=== PATIENT | male | born 1940 | race Caucasian/White ===

== ENCOUNTER 2020-03-14 19:13 | Inpatient (IN) | payer MEDICARE, SELFPAY ==
[2020-03-14 19:16] VITALS: BP 117/75; PULSE 96; RESP 17; O2SAT 94; BMI 14.9
--- NOTE | 2020-03-14 20:10 | ED_ITS ---
HPI - Male Genitourinary General: Chief complaint: Urogenital-Male Stated complaint: urology cath trauma d/a Time Seen by Provider: 03/14/20 20:06 History of Present Illness: HPI Narrative: This patient is an 79-year-old male who is a direct admit from [facility]. He is coming through the ER for Covid rule out. He has dementia and is unable to provide me with any history. ON LICENSE OF [facility] ED PFSH: Medical History (Updated 03/15/20 @ 02:36 by Ella Gil MD) Anemia Atrial fibrillation CVA (cerebral vascular accident) Dementia GERD (gastroesophageal reflux disease) Hypertension Social History (Updated 03/15/20 @ 02:31 by Ella Gil MD) Smoking and tobacco status: unknown if ever smoked Course ED course: It is my understanding that this patient was accepted by the hospitalist service as a direct admit and his only need from the ER is a Covid test which was performed and was negative. 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
[2020-03-14 20:54] LABS: SARS Covid-2 Antigen Negative (Negative)
[2020-03-14 21:58] VITALS: BP 117/76; PULSE 85; RESP 17; O2SAT 96
[2020-03-14 22:28] VITALS: BP 124/81; PULSE 86; RESP 18; TEMP 37.3; O2SAT 96
[2020-03-15] VITALS (10 sets, daily range): BP systolic 95–137; BP diastolic 56–82; PULSE 74–128; RESP 14–20; TEMP 36.7–37.9; O2SAT 88–99; BMI 14.9
[2020-03-15] MEDS: morphine 4 mg/mL SDV 1 mL 2 MG IVP ×3 (00:44→07:39)
--- NOTE | 2020-03-15 00:45 | PC.NURSE ---
This RN attempted to place 18g [facility] catheter without success. Many blood clots came out during this attempt. Patient was having 10/10 pain pre-procedure and having 10/10 post procedure. 2mg morphine IVP given and patient is resting comfortably. Patient does state he is having lower abdomen discomfort and feels like he needs to urinate.
[2020-03-15] MEDS: LORazepam 2 mg/mL INJ 1 mL 0.5 MG IVP (01:27)
--- NOTE | 2020-03-15 02:18 | PM.HP ---
Providers/Chief Complaint Admitting Physician: Ella Gil MD Chief Complaint: urology cath trauma d/a History of Present Illness Dhruv Fang is a 79 year old male with recent h/o CVA who [facility] transferred here from [facility] with chief complaint of hematuria. Reportedly patient sustained a fall at the penitentiary yesterday and then this morning noted several blood clots around the penis. He has a chronic Bradshaw since his CVA. At the outside hospital multiple attempts were made to place a Bradshaw however there was no drainage of urine noted and eventually because of ongoing hematuria and inability to pass a Bradshaw he was referred [place] [facility] [place]. He was brought to med/surg floor as a direct admit. Initially noted to have ~380 ml on bladder scan. Since presentation here three-way Bradshaw has been inserted and patient has been started on CBI. Multiple blood clots are noted in bag. His past medical history significant for atrial fibrillation, CVA, hypertension, COPD, unknown if he is oxygen dependent. He has been moving all extremities since transfer. Notable labs from the outside hospital showed leukocytosis with white blood cell count of 12.5, hemoglobin 15.9, platelets of 291. Digoxin level is 0.8. BUN 41, creatinine 1.2. Mild hyperkalemia with potassium 5.1, normal LFTs except mildly elevated alk phos at 158. Do not see any anticoagulants on his list of medications. He is on aspirin 325 mg daily. This has been placed on hold. Patient has recently received morphine 2 mg and Ativan 0.5 mg as he was in severe pain prior to passing the Bradshaw. He is much more calm since receiving these medications, however is unable to give me any specific historical details at this present time. Upon presentation he had been alert and oriented though had gaps in short term memory. Unknown recent baseline, though transfer documents make a note of dementia, poor rehab potential and paralysis. Review of Systems General: Reports: ROS unobtainable due to medical condition Medications/Allergies Home Medications Medication Instructions Recorded Confirmed Last Taken Type aspirin 325 mg PO DAILY 03/14/20 03/15/20 03/14/20 History bumetanide 0.5 mg PO DAILY 03/14/20 03/15/20 03/14/20 History diltiazem HCl [Cartia XT] 240 mg PO QAM 03/14/20 03/15/20 03/14/20 History ferrous sulfate 325 mg PO DIRECTED 03/14/20 03/15/20 Unknown History atorvastatin [Lipitor] 40 mg PO DAILY 03/15/20 03/15/20 03/13/20 History benazepril 20 mg PO DAILY 03/15/20 03/15/20 03/14/20 History digoxin 125 mcg PO EVERY OTHER DAY 03/15/20 03/15/20 Unknown History isosorbide mononitrate 30 mg PO DAILY 03/15/20 03/15/20 1 Day Ago History ~03/14/20 levetiracetam [Keppra] 1,000 mg PO QAM 03/15/20 03/15/20 1 Day Ago History ~03/14/20 levetiracetam [Keppra] 500 mg PO BEDTIME 03/15/20 03/15/20 03/13/20 History levothyroxine 125 mcg PO DAILY 03/15/20 03/15/20 03/14/20 History metoprolol tartrate 100 mg PO BID 03/15/20 03/15/20 03/14/20 History potassium chloride 10 meq PO DAILY 03/15/20 03/15/20 03/14/20 History Allergies Allergy/AdvReac Type Severity Reaction Status Date / Time No Known Allergies Allergy Verified 03/14/20 23:47 PFSH Acute PFSH: Medical History Anemia Atrial fibrillation CVA (cerebral vascular accident) Dementia GERD (gastroesophageal reflux disease) Social History (Updated 03/15/20 @ 02:31 by Ella Gil MD) Smoking and tobacco status: unknown if ever smoked Vitals/I&O/Wt Last Vital Signs Temp 99.1 F 03/14/20 22:28 Pulse 86 03/14/20 22:28 Resp 14 03/15/20 00:44 BP 124/81 03/14/20 22:28 Pulse Ox 96 03/14/20 22:28 Weight last 48 hrs Weight 49.895 kg Physical Exam Narrative: EXAM NARRATIVE: GEN: Somnolent at this time, though wakes up easily to calling name and answers questions yes or no appropriately. 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 No gross scrotal injuries. A&P Assessment and plan (1) Hematuria: May be related to either trauma from reported mechanical fall with pulling of chronic Bradshaw vs multiple attempts to place bradshaw earlier today Currently with [address], on CBI, bright red blood with clots Last Hb earlier this aftrenoon at 15, recheck now Check PT/INR, no a/c on home medication list Hold ASA until hematuria resolves urology consult in morning Status: Acute (2) Hypertension: continue home medications inluding CLIF inhibitors, imdur and metoprolol Status: Acute (3) CVA (cerebral vascular accident): recent CVA Hold ASA continue statin, keppra Status: Acute (4) Atrial fibrillation: Currently rate controlled, continue digoxin and metoprolol Status: Acute Attestations Medical Necessity Statement*: anticipate >2midnight for management of gross hematuria, CBI, urology consult Coding Level of Care Code Acute Quality Assurance Assessor for [facility] Donna Diagnoses Hematuria R31.9 Hypertension I10 CVA (cerebral vascular accident) I63.9 Atrial fibrillation I48.91
[2020-03-15 03:07] LABS: Basophils % 0.2 %; Eosinophils % 0.1 %; Hematocrit 47.5 % (42.0-52.0); Hemoglobin 15.1 g/dL (11.7-16.6); Lymphocytes # 1.8 10^3/uL (0.8-4.8); Lymphocytes % 10.4 %; Mean Corpuscular HGB Conc 31.8 g/dL (30.0-36.0); Mean Corpuscular Hemoglobin 27.9 pg (28.0-34.0); Mean Corpuscular Volume 87.6 fL (80-94); Mean Platelet Volume 10.7 fL (7.4-10.4); Monocytes # 1.3 10^3/uL (0.2-0.9); Monocytes % 7.7 %; Neutrophils # 13.71 10^3/uL (1.8-7.7); Neutrophils % 81.2 %; Nucleated Red Blood Cells % 0 %; Platelet Count 284 10^3/cmm (130-400); Red Blood Count 5.42 10^6/uL (4.1-5.3); Red Cell Distribution Width 15.5 % (12.1-15.1); White Blood Count 16.9 10^3/uL (4.0-10.0)
[2020-03-15 03:15] LABS: INR 1.28 (0.8-1.2)
[2020-03-15 03:25] LABS: Alanine Aminotransferase 29 U/L (0-41); Albumin Level 3.5 g/dL (3.5-5.2); Alkaline Phosphatase 129 IU/L (40-130); Anion Gap 16.1 (5-19); Aspartate Amino Transferase 18 U/L (0-40); Blood Urea Nitrogen 35 mg/dL (8-23); Calcium 9.2 mg/dL (8.5-10.5); Carbon Dioxide 23 mmol/L (22-29); Chloride 103 mmol/L (98-107); Globulin 3.6 g/dL (1.3-4.6); Glucose 155 mg/dL (65-115); Osmolality Calculated 297 mOsm/kg (285-295); Potassium 4.1 mmol/L (3.5-5.1); Sodium 138 mmol/L (136-145); Total Bilirubin 0.8 mg/dL (0.15-1.2); Total Protein 7.1 g/dL (6.6-8.7)
[2020-03-15] MEDS: cefTRIAXone 1,000 MG in sodium chloride 0.9% (plus) 50 ML 100 MG IV (04:58)
[2020-03-15] MEDS: dilTIAZem ER (24HR) 240 mg Capsule PO (05:37)
[2020-03-15] MEDS: levETIRAcetam 500 mg Tablet 1000 MG PO (05:37)
--- NOTE | 2020-03-15 08:09 | PM.PROC ---
Other Information: Procedure: 1. Cystoscopy 2. Difficult catheter placement See consult for history. On first examination his bladder felt distended. Bladder scan confirmed at least 200 cc in his bladder. Alvarez catheter was not draining but CBI that was running and appeared to be running out clear. There is no real leakage around the catheter. Alvarez was removed and there was a minimal amount of bleeding. He was prepped and draped in the usual sterile fashion. Bedside flexible cystoscopy was performed with [facility] scope which showed a deep bulbar urethral partial disruption primarily posteriorly from catheter trauma. The true lumen was identified anteriorly thankfully and a scope was passed through the true lumen into the bladder. A guidewire was passed through the scope curled into the bladder and then a 20 [place] tip catheter was advanced over the wire into the bladder and the balloon inflated. After confirmation of balloon functioned appropriately the wire was removed. Several 100 cc of bloody urine was drained. The bladder was then irrigated and no clots were obtained. Catheter placed to dependent drainage. Catheter secured to the thigh with a Jhoan strap and instructions for securing the catheter making it difficult for the patient to reach were provided. The patient been pretreated with some morphine and Ativan and he tolerated procedure well. 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
--- NOTE | 2020-03-15 08:11 | PM.CONSULT ---
Providers/Reason For Consult Consulting Physican/Specialty*: Urology/Pugh Reason for Consult*: Gross hematuria malfunctioning Alvarez catheter Attending Physician: Ranulfo Bradford MD History of Present Illness History of Present Illness Dhruv Fang is a 79 year old male who I evaluated for the first time today for consultation. The patient has significant dementia and is not able to provide much information. We do know that he is a [place] [facility] resident in [facility] and apparently has a chronic indwelling Alvarez catheter. After a fall he apparently had increasing blood in the urine and around the catheter suspicious for catheter malpositioning. Attempts at local hospital were unsuccessful at replacing the catheter and he was transferred here for further evaluation. Rapid test in the emergency department was negative. Patient was in a lot of pain. He did have some blood at the meatus. Multiple attempts at passing the catheter were required to place 1 and there was a lot of blood drained with a catheter placement. Reportedly 400 cc were drained. He did not tolerated very well. CBI was started and appeared to be functioning well. I was consulted this morning for evaluation regarding the bleeding and catheter management. Patient was not able to provide any information other than his abdomen and suprapubic area were tender and that he had a surgery long time ago in his abdomen. Could not remember why Upon evaluation appeared that the catheter was probably not all the way in. His bladder felt distended and this was confirmed with a bladder scan. Manual irrigation of the catheter showed no ability to pull back much fluid surprisingly he did not have much leakage around the catheter. Irrigation was painful. At this point it was decided to perform a cystoscopy for evaluation with expectation of malpositioning of the catheter and urethral trauma. The Alvarez catheter was removed. He was prepped and draped in usual sterile fashion. Flexible cystoscopy did in fact confirm significant disruption of the posterior urethra from catheter trauma but the true lumen could be identified anteriorly and the scope was passed into the bladder and the wire placed. A 20 [place] tip catheter was placed over the wire. Function was confirmed bladder was irrigated no significant clots were returned. These findings are confirming urethral source of bleeding from catheter trauma with no significant clots within the bladder itself. The catheter was secured with a strap and instructions were given for further protection of the catheter from the patient grabbing it. Review of Systems General: Reports: ROS unobtainable due to mental status Meds/Allergies Home Medications and Allergies Home Medications Medication Instructions Recorded Confirmed Last Taken Type aspirin 325 mg PO DAILY 03/14/20 03/15/20 03/14/20 History bumetanide 0.5 mg PO DAILY 03/14/20 03/15/20 03/14/20 History diltiazem HCl [Cartia XT] 240 mg PO QAM 03/14/20 03/15/20 03/14/20 History ferrous sulfate 325 mg PO DIRECTED 03/14/20 03/15/20 Unknown History atorvastatin [Lipitor] 40 mg PO DAILY 03/15/20 03/15/20 03/13/20 History benazepril 20 mg PO DAILY 03/15/20 03/15/20 03/14/20 History digoxin 125 mcg PO EVERY OTHER DAY 03/15/20 03/15/20 Unknown History isosorbide mononitrate 30 mg PO DAILY 03/15/20 03/15/20 1 Day Ago History ~03/14/20 levetiracetam [Keppra] 1,000 mg PO QAM 03/15/20 03/15/20 1 Day Ago History ~03/14/20 levetiracetam [Keppra] 500 mg PO BEDTIME 03/15/20 03/15/20 03/13/20 History levothyroxine 125 mcg PO DAILY 03/15/20 03/15/20 03/14/20 History metoprolol tartrate 100 mg PO BID 03/15/20 03/15/20 03/14/20 History potassium chloride 10 meq PO DAILY 03/15/20 03/15/20 03/14/20 History Allergies Allergy/AdvReac Type Severity Reaction Status Date / Time No Known Allergies Allergy Verified 03/14/20 23:47 Current Medications Current Medications Generic Name Dose Route Start Last Admin Trade Name Freq PRN Reason Stop Dose Admin Diltiazem HCl 240 mg 03/15/20 06:00 03/15/20 05:37 Diltiazem Er (24hr) 240 Mg Capsule PO 240 mg QAM JIMENA Administration Ceftriaxone Sodium 1,000 mg/ 50 mls @ 100 mls/hr 03/15/20 02:45 03/15/20 04:58 Sodium Chloride IV 100 mls/hr Q24H JIMENA Administration Protocol Levetiracetam 1,000 mg 03/15/20 06:00 03/15/20 05:37 Levetiracetam 500 Mg Tablet PO 1,000 mg QAM JIMENA Administration Morphine Sulfate 2 mg 03/15/20 02:39 03/15/20 05:43 Morphine 4 Mg/Ml Sdv 1 Ml IVP 2 mg Q4H PRN Administration SEVERE PAIN PFSH Acute PFSH: Medical History (Updated 03/15/20 @ 08:25 by David Pugh MD) Anemia Atrial fibrillation CVA (cerebral vascular accident) Dementia GERD (gastroesophageal reflux disease) Hypertension Surgical History (Updated 03/15/20 @ 08:20 by David Pugh MD) History of abdominal surgery No further information available currently Social History Smoking and tobacco status: unknown if ever smoked Supplemental PFSH Information: Unable to obtain family or social history. Vitals/I&O/Wt Last Vital Signs Temp 98.3 F 03/15/20 04:00 Pulse 128 H 03/15/20 04:00 Resp 19 H 03/15/20 05:43 BP 137/82 03/15/20 04:00 Pulse Ox 96 03/15/20 04:00 Weight last 48 hrs Weight 110 lb Weight 110 lb Physical Exam Const: COMMON NORMALS: alert and well nourished GENERAL APPEARANCE: well kempt and well developed HENMT: COMMON NORMALS: normocephalic and atraumatic HEAD & SCALP: normocephalic and atraumatic Eye: COMMON NORMALS: conjunctivae normal and no scleral icterus CONJUNCTIVA: Yes conjunctivae normal Neck/C-Spine: COMMON NORMALS: full ROM GENERAL: Yes normal visual inspection Lymph: LYMPHATIC: No no lymphadenopathy noted and No no lymphedema noted Resp: COMMON NORMALS: normal respiratory effort EFFORT & INSPECTION: No labored and No Actively coughing Cardio: COMMON NORMALS: regular rate and regular rhythm RATE: regular rate RHYTHM: regular rhythm GI: COMMON NORMALS: Soft to palpation PALPATION: Yes Soft to palpation, Yes Tenderness to palpation present (GI) Details: LLQ, RLQ and other (Suprapubic) and Yes Palpable mass present (Likely distended bladder) suprapubic firm and tender RECTAL EXAM: Yes visual inspection normal OTHER: The bladder is distended. There is a well-healed midline lower abdominal incision over the suprapubic area. Etiology unclear : COMMON NORMALS: Yes no CVA tenderness BLADDER/KIDNEY EXAM: Yes catheter in place Catheter type (Male): urethral (Appears to be only partially in) and Yes no CVA tenderness PENIS: normal penis and uncircumcised MEATUS: meatus normal SCROTUM: No scrotal swelling and No scrotal mass Back/Pelvis: COMMON NORMALS: no CVA tenderness Extremity: COMMON NORMALS: no clubbing, cyanosis or edema Neuro: SENSORIUM/ORIENTATION: Yes alert Psych: APPEARANCE: Yes grossly normal and Yes well kempt ATTITUDE: Yes calm Skin: COMMON NORMALS: no rashes or lesions noted and no jaundice GENERAL SKIN EXAM: no rashes or lesions noted Urinary Catheter Management^: 3-way Urethral CBI: Cath Placed During This Visit: yes Urinary Catheter Date of Insertion: 03/15/20 Urinary Catheter Time of Insertion: 02:00 A&P Assessment and plan (1) Urethral injury: Likely from a fall with catheter malpositioning and then multiple attempts at replacing the catheter unsuccessful with likely further trauma. Catheter was replaced via assistance with cystoscopy guidewire placement and passage of [place] tip catheter over the guidewire. The urethra was severely injured primarily with disruption posteriorly but the true lumen was identifiable. No other gross abnormality was seen in the prostate or urethra proximal to the membranous or deep bulbar urethra. Recommendations for catheter: 1. Protect the catheter carefully to avoid patient pulling on the catheter. 2. Expect to see some blood continued around the catheter from the urethra until the urethra is healed. 3. No attempt should be made to change the catheter without consulting with me or other urology first. 4. I will plan on seeing the patient in my office in 3 to 4 weeks for next catheter change again assisted by cystoscopy to assess for healing of the disrupted area 4. Manual irrigation of the catheter as needed. Status: Acute (2) Urinary retention: Reportedly the patient has a chronic Alvarez catheter. Details related to why are unclear at this point. Status: Chronic (3) Hematuria: Secondary to urethral injury Status: Acute Consult Attestations Medical Necessity Statement: See attending Time Spent in Patient Care: Total time 95 minutes Coding Level of Care Code Acute Social Security Specialist for [facility] Fwd Exam Comprehensive Diagnoses Urethral injury S37.30XA Urinary retention R33.9 Hematuria R31.9
--- NOTE | 2020-03-15 10:42 | PC.SLP ---
Attempted to evaluate for ST. Unable to rouse pt. Nursing stated to attempt ST evaluation tomorrow.
--- NOTE | 2020-03-15 11:17 | PC.PT ---
PT attempted to wake patient for PT evaluation but unable to arouse on multiple attempts. PT spoke with nursing who reports he will likely respond better tomorrow. PT will attempt evaluation again tomorrow.
--- NOTE | 2020-03-15 12:55 | PM.PN ---
Subjective Subjective: Interval history: This morning patient was examined, he is sleeping, but somnolent, as he is received multiple doses of morphine after his Alvarez had to be replaced, as he was in pain, nurses tell me that at 1 point he was able to ambulate to the bathroom with assistance, he was moving his upper and lower extremities, they have kept him n.p.o., as they were concerned for aspiration Vitals/I&O/Wt Last Vital Signs Temp 100.2 F H 03/15/20 11:58 Pulse 109 H 03/15/20 11:58 Resp 18 03/15/20 11:58 BP 96/56 03/15/20 11:58 Pulse Ox 93 03/15/20 11:58 Weight last 48 hrs Weight 49.895 kg Weight 49.895 kg Physical Exam Const: COMMON NORMALS: no acute distress OTHER: Sleeping, somnolent HENMT: COMMON NORMALS: normocephalic HEAD & SCALP: normocephalic Eye: COMMON NORMALS: Equal, round and reactive pupils present PUPIL: Yes Equal, round and reactive pupils present Neck/C-Spine: COMMON NORMALS: no JVD Chest: COMMONS NORMALS: normal inspection of the chest Resp: COMMON NORMALS: normal respiratory effort, No retractions and No use of accessory muscles Cardio: COMMON NORMALS: no JVD, regular rate, regular rhythm, S1 normal heart sound present and S2 normal heart sound present RATE: regular rate RHYTHM: regular rhythm HEART SOUNDS: S1 normal heart sound present and S2 normal heart sound present GI: COMMON NORMALS: Normal to inspection, nondistended, normoactive bowel sounds present, Soft to palpation, non-tender and No hepatosplenomegaly present PALPATION: Yes Soft to palpation and Yes No hepatosplenomegaly present Extremity: COMMON NORMALS: full ROM, capillary refill normal and no clubbing, cyanosis or edema Urinary Catheter Management^: 3-way Urethral CBI: Cath Placed During This Visit: yes Urinary Catheter Date of Insertion: 03/15/20 Urinary Catheter Time of Insertion: 02:00 Alvarez Latex Free: Cath Placed During This Visit: yes Urinary Catheter Date of Insertion: 03/15/20 Urinary Catheter Time of Insertion: 08:00 Data : 03/15/20 02:46 03/15/20 02:46 A&P Assessment and plan (1) Hematuria: Likely secondary to urethral injury Patient must of fallen, and somehow pulled on Alvarez catheter Catheter was placed by Dr. Pugh, thank you for the help and consult Avoid blood thinners and anticoagulation for the next 24 hours Continue one-on-one sitter, as patient has had episodes of confusion, avoid pulling on the Alvarez catheter Status: Acute (2) Hypertension: continue home medications inluding CLIF inhibitors, imdur and metoprolol Status: Acute (3) CVA (cerebral vascular accident): In terms of the CVA, what I get from the senior care, is the patient a few days ago had a large CVA, he had right upper and lower extremity weakness, was discharged to the senior care, he only spent 1 day at the senior care, apparently the senior care was telling me that the came early in the morning and wanted him discharged from the senior care, but she left subsequently, they have not heard back from her, throughout the day he was quite weak, fatigued, who is a high aspiration risk, so they did not feed him, and not sure exactly if he had a formal swallow evaluation, but unfortunately during the nights he got up out of bed, and fell -Hold aspirin -Continue statin, Keppra -will do a formal swallow evaluation on him tomorrow -PT OT -We will better evaluate his neurologic status, when he is much more awake -Continue Rocephin for possible UTI Status: Acute (4) Atrial fibrillation: -Currently on Cardizem continue digoxin and metoprolol -I am not sure why he is not on anticoagulation, -Nonetheless all anticoagulation is on hold given urethral trauma -Will await records from [facility] -Continue telemetry monitoring Status: Acute Attestations Medical Necessity Statement*: Patient requires hospitalization for urethral injury, hematuria, recent history of CVA Coding Level of Care Code Acute 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
--- NOTE | 2020-03-15 13:06 | XRR_ITS ---
PROCEDURE INFORMATION: Exam: XR Chest, 1 View Exam date and time: 03/15/2020 1:26 PM Age: 79 years old Clinical indication: Other: PT unable to give history; Additional info: SOB TECHNIQUE: Imaging protocol: XR of the chest Views: 1 view. COMPARISON: No relevant prior studies available. FINDINGS: Lungs: There is chronic interstitial densities seen in the bilateral lower lobes. Pleural space: Unremarkable. No pleural effusion. No pneumothorax. Heart/Mediastinum: Unremarkable. No cardiomegaly. Bones/joints: Unremarkable. XR/XR chest 1V portable [id number] IMPRESSION: 1. Interstitial densities bilateral lower lobes 2. Otherwise No acute findings.
--- NOTE | 2020-03-15 13:06 | CTR_ITS ---
PROCEDURE INFORMATION: Exam: CT Head Without Contrast Exam date and time: 03/15/2020 1:27 PM Age: 79 years old Clinical indication: Altered mental status/memory loss; Additional info: AMS TECHNIQUE: Imaging protocol: Computed tomography of the head without contrast. Radiation optimization: All CT scans at this facility use at least one of these dose optimization techniques: automated exposure control; mA and/or kV adjustment per patient size (includes targeted exams where dose is matched to clinical indication); or iterative reconstruction. COMPARISON: No relevant prior studies available. RADIATION DOSE METRICS: Total DLP (mGy-cm): 2151.18 FINDINGS: Brain: Left medial occipital lobe chronic infarction. Chronic right superior parietal cortical infarction. Moderate hypoattenuating foci are noted in the central cerebral, posterior superior periatrial and anterior lateral ventricular periventricular white matter bilaterally. No intracranial hemorrhage. No mass or acute cortical infarction identified. Cerebral ventricles: Prominence of the ventricular system and subarachnoid spaces is consistent with the patient's age of 79 years. Ex vacuo enlargement of the left lateral ventricular occipital horn. Bones/joints: See Paranasal sinuses finding. Paranasal sinuses: Minimal bilateral maxillary and sphenoid sinus mucosal thickening. Moderate chronic bilateral maxillary and sphenoid sinus bony wall thickening. Hypoplastic/absent frontal sinuses, normal variant. Mastoid air cells: Visualized mastoid air cells are well aerated. Vasculature: Atherosclerotic calcifications are present involving the basilar artery, and the carotid artery siphons and vertebral arteries bilaterally. Bilateral scleral calcifications. Soft tissues: Mild left lower anterior frontal superficial soft tissue swelling versus subcutaneous scarring. CT/CT head wo con* [id number] IMPRESSION: 1. Left medial occipital lobe chronic infarction. 2. Chronic right superior parietal cortical infarction. 3. Age appropriate supratentorial and infratentorial atrophy. 4. Moderate chronic white matter microvascular ischemic disease. 5. No acute intracranial abnormality identified. 6. Incidental paranasal sinus disease as above. Radiation Dose CTDIVOL = (mGy): DLP = 2151.18 (mGy-cm)
[2020-03-15 13:43] LABS: Procalcitonin 0.22 ng/mL (0-0.5)
[2020-03-15 13:54] LABS: C Reactive Protein 40.4 mg/L (0.0-4.9)
[2020-03-15 15:00] LABS: Lactate (Lactic Acid level) 1.2 mmol/L (0.5-2.2)
[2020-03-15] MEDS: vancomycin 750 MG in sodium chloride 0.9% 250 ML 250 MG IV (15:26)
[2020-03-15] MEDS: piperacillin-tazobactam 3.375 GM in sodium chloride 0.9% (plus) 50 ML IV (17:26)
[2020-03-15] MEDS: lactated ringers 500 ML 999 ML IV (18:45)
[2020-03-15] MEDS: levETIRAcetam 500 mg Tablet PO (20:45)
[2020-03-16] VITALS (11 sets, daily range): BP systolic 92–143; BP diastolic 50–92; PULSE 54–102; RESP 15–18; TEMP 36.6–37.2; O2SAT 93–97
[2020-03-16] MEDS: piperacillin-tazobactam 3.375 GM in sodium chloride 0.9% (plus) 50 ML IV ×3 (02:14→18:30)
[2020-03-16] MEDS: dilTIAZem ER (24HR) 240 mg Capsule PO (05:57)
[2020-03-16] MEDS: levETIRAcetam 500 mg Tablet 1000 MG PO (05:57)
[2020-03-16] MEDS: pantoprazole DR 40 mg Tablet PO (09:03)
[2020-03-16] MEDS: ferrous sulfate EC 325 mg Tablet PO (09:04)
[2020-03-16] MEDS: isosorbide mononitrate ER 30 mg Tablet PO (09:04)
[2020-03-16] MEDS: levothyroxine 125 mcg Tablet PO (09:04)
[2020-03-16] MEDS: metoprolol tartrate 50 mg Tablet 100 MG PO ×2 (09:04→18:28)
[2020-03-16] MEDS: atorvastatin 40 mg Tablet PO (09:04)
[2020-03-16 10:27] LABS: Basophils % 0.3 %; Eosinophils # 0.1 10^3/uL (0.0-0.8); Eosinophils % 1.2 %; Hematocrit 44.2 % (42.0-52.0); Hemoglobin 13.3 g/dL (11.7-16.6); Lymphocytes # 1.3 10^3/uL (0.8-4.8); Lymphocytes % 14.1 %; Mean Corpuscular HGB Conc 30.1 g/dL (30.0-36.0); Mean Corpuscular Hemoglobin 28.1 pg (28.0-34.0); Mean Corpuscular Volume 93.4 fL (80-94); Mean Platelet Volume 10.8 fL (7.4-10.4); Monocytes # 1.1 10^3/uL (0.2-0.9); Monocytes % 12.1 %; Neutrophils # 6.47 10^3/uL (1.8-7.7); Nucleated Red Blood Cells % 0 %; Platelet Count 193 10^3/cmm (130-400); Red Blood Count 4.73 10^6/uL (4.1-5.3); Red Cell Distribution Width 15.8 % (12.1-15.1)
[2020-03-16 10:53] LABS: NT Pro B Type Natriuretic Pept 1894 pg/mL (0-450); Procalcitonin 0.21 ng/mL (0-0.5)
[2020-03-16 10:58] LABS: INR 1.27 (0.8-1.2)
[2020-03-16 11:04] LABS: Alanine Aminotransferase 20 U/L (0-41); Albumin Level 2.8 g/dL (3.5-5.2); Alkaline Phosphatase 96 IU/L (40-130); Aspartate Amino Transferase 15 U/L (0-40); Blood Urea Nitrogen 27 mg/dL (8-23); Carbon Dioxide 25 mmol/L (22-29); Chloride 104 mmol/L (98-107); Creatine Phosphokinase 44 U/L (39-308); Globulin 3.1 g/dL (1.3-4.6); Glucose 111 mg/dL (65-115); Magnesium 2.2 mg/dL (1.7-2.3); Osmolality Calculated 292 mOsm/kg (285-295); Phosphorus 2.8 mg/dL (2.5-4.5); Sodium 138 mmol/L (136-145); Total Bilirubin 0.4 mg/dL (0.15-1.2); Total Protein 5.9 g/dL (6.6-8.7)
--- NOTE | 2020-03-16 12:00 | P.PN_ITS ---
Subjective Subjective: Interval history: This morning patient was examined, he is much more alert, awake, he knows his name, he knows where he is, does not know the time, he forgets that he had a stroke, he is wondering what what had happened, he surprised that he fell, surprised that he has a urethral injury, he does follow commands, his right upper lower extremity are weak compared to the left, no slurring of his speech noticed, he was able to tolerate clear liquid diet, speech pathology is seeing him this morning Vitals/I&O/Wt Last Vital Signs Temp 97.9 F 03/16/20 11:05 Pulse 55 L 03/16/20 11:05 Resp 15 03/16/20 11:05 BP 92/51 03/16/20 11:05 Pulse Ox 97 03/16/20 11:05 03/15/20 03/16/20 03/16/20 22:59 06:59 14:59 Intake Total 50 / 50 50 / 100 Output Total 400 / 400 350 / 750 Balance -350 / -350 -300 / -650 Weight last 48 hrs Weight 49.895 kg Weight 49.895 kg Physical Exam Const: COMMON NORMALS: no acute distress and alert GENERAL APPEARANCE: cooperative ORIENTATION/CONSCIOUSNESS: Yes awake and Yes oriented to person; not oriented to place and not oriented to time HENMT: COMMON NORMALS: normocephalic HEAD & SCALP: normocephalic Eye: COMMON NORMALS: Equal, round and reactive pupils present PUPIL: Yes Equal, round and reactive pupils present Neck/C-Spine: COMMON NORMALS: no JVD Lymph: LYMPHATIC: no lymphadenopathy noted Resp: COMMON NORMALS: normal respiratory effort, No retractions, No use of accessory muscles and clear to auscultation bilaterally AUSCULTATION: clear to auscultation bilaterally Cardio: COMMON NORMALS: no JVD, regular rate, S1 normal heart sound present and S2 normal heart sound present RATE: regular rate HEART SOUNDS: S1 normal heart sound present and S2 normal heart sound present GI: COMMON NORMALS: Normal to inspection, nondistended, normoactive bowel sounds present, Soft to palpation, non-tender and No hepatosplenomegaly present INSPECTION: Yes normal to inspection PALPATION: Yes Soft to palpation and Yes No hepatosplenomegaly present Extremity: COMMON NORMALS: no pedal edema Neuro: SENSORIUM/ORIENTATION: Yes alert, Yes oriented to person, No oriented to place and No oriented to time OTHER: Right upper extremity weakness 3 out of 5 compared to 5 out of 5 on the left right lower extremity strength 3 out of 5 compared to 5 out of 5 on the left, no slurring of his speech, no choking episodes, no facial droop Urinary Catheter Management^: 3-way Urethral CBI: Cath Placed During This Visit: yes Urinary Catheter Date of Insertion: 03/15/20 Urinary Catheter Time of Insertion: 02:00 Alvarez Latex Free: Cath Placed During This Visit: yes Reason for Continuing Indwelling Catheter: Chronic Indwelling Urinary Catheter on Admission Urinary Catheter Date of Insertion: 03/15/20 Urinary Catheter Time of Insertion: 08:00 Data : 03/16/20 10:00 03/16/20 10:00 Micro: Microbiology 03/15/20 14:00 Urine Culture - Preliminary Urine Catheterized Enterococcus species 03/15/20 14:00 Bacterial Antigens - Final Urine,Clean Catch 03/15/20 14:17 Blood Culture - Preliminary Blood SPECIMEN COLLECTED 03/15/20 14:09 Blood Culture - Preliminary Blood SPECIMEN COLLECTED A&P Assessment and plan (1) Hematuria: Likely secondary to urethral injury Patient must of fallen, and somehow pulled on Alvarez catheter Catheter was placed by Dr. Pugh, thank you for the help and consult Avoid blood thinners and anticoagulation for the next 24 hours Continue one-on-one sitter, as patient has had episodes of confusion, avoid pulling on the Alvarez catheter Status: Acute (2) Hypertension: continue home medications inluding CLIF inhibitors, imdur and metoprolol Status: Acute (3) CVA (cerebral vascular accident): In terms of the CVA, what I get from the senior living, is the patient a few days ago had a large CVA, he had right upper and lower extremity weakness, was discharged to the senior living, he only spent 1 day at the senior living, apparently the senior living was telling me that the came early in the morning and wanted him discharged from the senior living, but she left subsequently, they have not heard back from her, throughout the day he was quite weak, fatigued, who is a high aspiration risk, so they did not feed him, and not sure exactly if he had a formal swallow evaluation, but unfortunately during the nights he got up out of bed, and fell -I spoke to patient today, she tells me that patient had a history of bladder cancer, status post chemotherapy, follows with a urologist in [place], has a history of CVA in 2013, with peripheral right vision loss, recent history of a stroke at [facility], he has right upper extremity weakness some right lower extremity weakness, unsteadiness on his feet, tells me that he was quite difficult to work with physical therapist, would refuse physical therapy at time, she tells me that she would feed him every day, no dysphagia that she knows of, no new visual loss as per her knowledge, maybe some slight slurring of his speech, but nothing profound. -I spoke to again today, she does not want him to be discharged to senior living, she wants to take him home, I advised that he has right upper lower extremity weakness is very unsteady on his feet, has a high risk of falls, high risk of fractures, high risk of intracranial bleed, high risk of significant mor bidity and mortality. She tells me that he has already fallen in the senior living, they do not do a good job there, she might as well take him home, also she tells me that they cannot afford it. I advised that he is unsafe to go home in my opinion, he really needs senior living care, that is my strong recommendation for him to go to a senior living, he needs a lot of assistance, I am also worried about her injuring herself trying to take care of him, she tells me that she still wants him to come home, but she will think about it tonight -Hold aspirin -Continue statin, Keppra -will do a formal swallow evaluation on him tomorrow -PT OT -We will better evaluate his neurologic status, when he is much more awake -Continue Rocephin for possible UTI Status: Acute (4) Atrial fibrillation: -Currently on Cardizem continue digoxin and metoprolol -Not on anticoagulation due to multiple falls, high risk of significant injury -Will await records from [facility] -Continue telemetry monitoring Status: Acute Additional A&P Information Aspiration pneumonia: T-max 100.2, is on 2 L, likely has aspiration event secondary to fall -Blood cultures, urine cultures, sputum cultures, urine bacterial antigens -On broad-spectrum antibiotics vancomycin and Zosyn -De-escalate to vancomycin after MRSA nares comes back negative Attestations Medical Necessity Statement*: Patient requires hospitalization for CVA, urethral injury, aspiration pneumonia Coding Level of Care Code 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
[2020-03-16] MEDS: vancomycin 750 MG in sodium chloride 0.9% 250 ML 250 MG IV (16:55)
[2020-03-16] MEDS: levETIRAcetam 500 mg Tablet PO (21:27)
[2020-03-17] VITALS (11 sets, daily range): BP systolic 92–129; BP diastolic 62–85; PULSE 59–88; RESP 15–20; TEMP 36.4–36.9; O2SAT 94–96
[2020-03-17] MEDS: piperacillin-tazobactam 3.375 GM in sodium chloride 0.9% (plus) 50 ML IV ×3 (03:33→18:02)
[2020-03-17 04:56] LABS: Basophils % 0.2 %; Eosinophils # 0.2 10^3/uL (0.0-0.8); Eosinophils % 2.5 %; Hematocrit 39.2 % (42.0-52.0); Hemoglobin 12.1 g/dL (11.7-16.6); Lymphocytes # 1.6 10^3/uL (0.8-4.8); Lymphocytes % 19.9 %; Mean Corpuscular HGB Conc 30.9 g/dL (30.0-36.0); Mean Corpuscular Hemoglobin 27.6 pg (28.0-34.0); Mean Corpuscular Volume 89.5 fL (80-94); Mean Platelet Volume 11.1 fL (7.4-10.4); Monocytes # 1.1 10^3/uL (0.2-0.9); Monocytes % 13.5 %; Neutrophils # 5.14 10^3/uL (1.8-7.7); Neutrophils % 63.5 %; Nucleated Red Blood Cells % 0 %; Platelet Count 207 10^3/cmm (130-400); Red Blood Count 4.38 10^6/uL (4.1-5.3); Red Cell Distribution Width 15.9 % (12.1-15.1); White Blood Count 8.1 10^3/uL (4.0-10.0)
[2020-03-17 05:26] LABS: INR 1.16 (0.8-1.2)
[2020-03-17 05:31] LABS: NT Pro B Type Natriuretic Pept 2167 pg/mL (0-450); Procalcitonin 0.19 ng/mL (0-0.5)
[2020-03-17 05:42] LABS: Alanine Aminotransferase 18 U/L (0-41); Albumin Level 2.6 g/dL (3.5-5.2); Alkaline Phosphatase 85 IU/L (40-130); Anion Gap 11.1 (5-19); Aspartate Amino Transferase 15 U/L (0-40); Blood Urea Nitrogen 28 mg/dL (8-23); C Reactive Protein 49.1 mg/L (0.0-4.9); Calcium 8.9 mg/dL (8.5-10.5); Carbon Dioxide 26 mmol/L (22-29); Chloride 105 mmol/L (98-107); Creatine Phosphokinase 41 U/L (39-308); Globulin 3.2 g/dL (1.3-4.6); Glucose 101 mg/dL (65-115); Magnesium 2.1 mg/dL (1.7-2.3); Osmolality Calculated 292 mOsm/kg (285-295); Phosphorus 2.9 mg/dL (2.5-4.5); Potassium 4.1 mmol/L (3.5-5.1); Sodium 138 mmol/L (136-145); Total Bilirubin 0.4 mg/dL (0.15-1.2); Total Protein 5.8 g/dL (6.6-8.7)
[2020-03-17] MEDS: dilTIAZem ER (24HR) 240 mg Capsule PO (06:19)
[2020-03-17] MEDS: levETIRAcetam 500 mg Tablet 1000 MG PO (06:19)
[2020-03-17] MEDS: metoprolol tartrate 50 mg Tablet 100 MG PO ×2 (09:00→18:02)
[2020-03-17] MEDS: levothyroxine 125 mcg Tablet PO (09:00)
[2020-03-17] MEDS: atorvastatin 40 mg Tablet PO (09:00)
[2020-03-17] MEDS: digoxin 125 mcg Tablet PO (09:00)
[2020-03-17] MEDS: isosorbide mononitrate ER 30 mg Tablet PO (09:01)
[2020-03-17] MEDS: pantoprazole DR 40 mg Tablet PO (09:01)
--- NOTE | 2020-03-17 09:10 | PC.SOCIAL ---
IMM Page 2 of [facility] explained to patient's spouse by phone. She verbalizes understanding. Initialed, dated, and timed and placed in chart. Copy provided to patient's room.
--- NOTE | 2020-03-17 13:21 | P.PN_ITS ---
Subjective Subjective: Interval history: This morning patient was examined, he is alert to person, place, not to time, does not know why he is here in the hospital, does not remember he had a stroke, persistently has right upper extremity weakness, right lower extremity weakness, tolerating his diet well, no episodes of agitation overnight, is on room air Vitals/I&O/Wt Last Vital Signs Temp 97.5 F L 03/17/20 11:34 Pulse 72 03/17/20 11:34 Resp 15 03/17/20 11:34 BP 100/65 03/17/20 11:34 Pulse Ox 95 03/17/20 11:34 03/16/20 03/17/20 03/17/20 22:59 06:59 14:59 Intake Total 580 / 1060 60 / 1120 290 / 290 Output Total 350 / 350 150 / 500 Balance 230 / 710 -90 / 620 290 / 290 Physical Exam Const: COMMON NORMALS: no acute distress and alert GENERAL APPEARANCE: cooperative ORIENTATION/CONSCIOUSNESS: Yes awake and Yes oriented to person; not oriented to place and not oriented to time HENMT: COMMON NORMALS: normocephalic HEAD & SCALP: normocephalic Eye: COMMON NORMALS: Equal, round and reactive pupils present PUPIL: Yes Equal, round and reactive pupils present Neck/C-Spine: COMMON NORMALS: no JVD Lymph: LYMPHATIC: no lymphadenopathy noted Chest: COMMONS NORMALS: normal inspection of the chest Resp: COMMON NORMALS: normal respiratory effort, No retractions, No use of accessory muscles and clear to auscultation bilaterally AUSCULTATION: clear to auscultation bilaterally Cardio: COMMON NORMALS: no JVD, regular rate, regular rhythm, S1 normal heart sound present and S2 normal heart sound present RATE: regular rate RHYTHM: regular rhythm HEART SOUNDS: S1 normal heart sound present and S2 normal heart sound present GI: COMMON NORMALS: Normal to inspection, nondistended, normoactive bowel sounds present, Soft to palpation, non-tender and No hepatosplenomegaly present INSPECTION: Yes normal to inspection PALPATION: Yes Soft to palpation and Yes No hepatosplenomegaly present Extremity: COMMON NORMALS: full ROM, capillary refill normal, no clubbing, cyanosis or edema and no pedal edema Neuro: SENSORIUM/ORIENTATION: Yes alert, Yes oriented to person, No oriented to place and No oriented to time OTHER: Right upper extremity weakness 3 out of 5 compared to 5 out of 5 on the left right lower extremity strength 3 out of 5 compared to 5 out of 5 on the left, no slurring of his speech, no choking episodes, no facial droop Urinary Catheter Management^: 3-way Urethral CBI: Cath Placed During This Visit: yes Urinary Catheter Date of Insertion: 03/15/20 Urinary Catheter Time of Insertion: 02:00 Alvarez Latex Free: Cath Placed During This Visit: yes Reason for Continuing Indwelling Catheter: Chronic Indwelling Urinary Catheter on Admission Urinary Catheter Date of Insertion: 03/15/20 Urinary Catheter Time of Insertion: 08:00 Data : 03/17/20 04:40 03/17/20 04:40 Micro: Microbiology 03/15/20 14:00 Urine Culture - Final Urine Catheterized Enterococcus faecalis 03/16/20 13:15 MRSA Culture - Final Nose 03/15/20 14:17 Blood Culture - Preliminary Blood NEGATIVE TO DATE 03/15/20 14:09 Blood Culture - Preliminary Blood NEGATIVE TO DATE A&P Assessment and plan (1) Hematuria: Likely secondary to urethral injury Patient must of fallen, and somehow pulled on Alvarez catheter Catheter was placed by Dr. Pugh, thank you for the help and consult Avoid blood thinners and anticoagulation for the next 24 hours Continue one-on-one sitter, as patient has had episodes of confusion, avoid pulling on the Alvarez catheter Status: Acute (2) Hypertension: continue home medications inluding CLIF inhibitors, imdur and metoprolol Status: Acute (3) CVA (cerebral vascular accident): In terms of the CVA, what I get from the correction, is the patient a few days ago had a large CVA, he had right upper and lower extremity weakness, was discharged to the correction, he only spent 1 day at the correction, apparently the correction was telling me that the came early in the morning and wanted him discharged from the correction, but she left subsequently, they have not heard back from her, throughout the day he was quite weak, fatigued, who is a high aspiration risk, so they did not feed him, and not sure exactly if he had a formal swallow evaluation, but unfortunately during the nights he got up out of bed, and fell -I spoke to patient today, she tells me that patient had a history of bladder cancer, status post chemotherapy, follows with a urologist in [place], has a history of CVA in 2013, with peripheral right vision loss, recent history of a stroke at [facility], he has right upper extremity weakness some right lower extremity weakness, unsteadiness on his feet, tells me that he was quite difficult to work with physical therapist, would refuse physical therapy at time, she tells me that she would feed him every day, no dysphagia that she knows of, no new visual loss as per her knowledge, maybe some slight slurring of his speech, but nothing profound. -I spoke to again today, she does not want him to be discharged to correction, she wants to take him home, I advised that he has right upper lower extremity weakness is very unsteady on his feet, has a high risk of falls, high risk of fractures, high risk of intracranial bleed, high risk of significant morbidity and mortality. She tells me that he has already fallen in the correction, they do not do a good job there, she might as well take him home, also she tells me that they cannot afford it. I advised that he is unsafe to go home in my opinion, he really needs correction care, that is my strong recommendation for him to go to a correction, he needs a lot of assistance, I am also worried about her injuring herself trying to take care of him, she tells me that she still wants him to come home -Patient's now wants him to go to either [facility] bed or go home with rafael, this will be have to be arranged, will find out by Thursday -Hold aspirin for now -Hold DVT prophylaxis for now -Continue statin, Keppra -Currently on dysphagia diet -PT OT -Right upper extremity weakness and lower extremity weakness 3 out of 5 compared 5/5 on the left -Refuses to participate in physical therapy -Continue Zosyn for possible UTI, and likely aspiration pneumonia Status: Acute (4) Atrial fibrillation: -Currently on Cardizem continue digoxin and metoprolol -Not on anticoagulation due to multiple falls, high risk of significant injury -Will await records from [facility] -Continue telemetry monitoring Status: Acute Additional A&P Information Aspiration pneumonia: T-max 100.2, is on 2 L, likely has aspiration event secondary to fall -Currently afebrile, on room air -Blood cultures so far negative - urine cultures, sputum cultures, urine bacterial antigens -MRSA nares negative, stop vancomycin -Continue Zosyn - Attestations Medical Necessity Statement*: Patient requires hospitalization for urethral injury, aspiration pneumonia Coding Level of Care Code 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
--- NOTE | 2020-03-17 13:54 | PC.OT ---
OT ATTEMPTED TREATMENT HOWEVER PATIENT WAS UNAROUSABLE. MULTIPLE ATTEMPTS, WHEN PATIENT WOULD AWAKE, HE REPLIED MORE THAN ONCE I AM NOT DOING EXERCISES . PER SITTER, HE IS IN A MOOD TODAY . OT WILL ATTEMPT AGAIN TOMORROW. PATIENT REFUSED TREATMENT THIS DATE.
[2020-03-18] VITALS (10 sets, daily range): BP systolic 106–130; BP diastolic 63–79; PULSE 57–90; RESP 16–18; TEMP 36.4–37.2; O2SAT 91–95
[2020-03-18] MEDS: piperacillin-tazobactam 3.375 GM in sodium chloride 0.9% (plus) 50 ML IV (02:09)
[2020-03-18 05:06] LABS: Basophils % 0.3 %; Eosinophils # 0.4 10^3/uL (0.0-0.8); Eosinophils % 4.9 %; Lymphocytes # 2.1 10^3/uL (0.8-4.8); Lymphocytes % 26.8 %; Mean Corpuscular HGB Conc 31.6 g/dL (30.0-36.0); Mean Corpuscular Hemoglobin 28.2 pg (28.0-34.0); Mean Corpuscular Volume 89.4 fL (80-94); Mean Platelet Volume 10.9 fL (7.4-10.4); Monocytes # 1.1 10^3/uL (0.2-0.9); Monocytes % 14.3 %; Neutrophils # 4.27 10^3/uL (1.8-7.7); Neutrophils % 53.3 %; Nucleated Red Blood Cells % 0 %; Platelet Count 211 10^3/cmm (130-400); Red Blood Count 4.25 10^6/uL (4.1-5.3); Red Cell Distribution Width 15.5 % (12.1-15.1)
[2020-03-18 05:29] LABS: INR 1.15 (0.8-1.2)
[2020-03-18 05:34] LABS: NT Pro B Type Natriuretic Pept 2790 pg/mL (0-450); Procalcitonin 0.12 ng/mL (0-0.5)
[2020-03-18 05:57] LABS: Alanine Aminotransferase 14 U/L (0-41); Albumin Level 2.7 g/dL (3.5-5.2); Alkaline Phosphatase 76 IU/L (40-130); Anion Gap 12.7 (5-19); Aspartate Amino Transferase 17 U/L (0-40); Blood Urea Nitrogen 20 mg/dL (8-23); C Reactive Protein 28.1 mg/L (0.0-4.9); Calcium 8.6 mg/dL (8.5-10.5); Carbon Dioxide 23 mmol/L (22-29); Chloride 106 mmol/L (98-107); Creatine Phosphokinase 26 U/L (39-308); Globulin 2.8 g/dL (1.3-4.6); Glucose 85 mg/dL (65-115); Magnesium 1.9 mg/dL (1.7-2.3); Osmolality Calculated 288 mOsm/kg (285-295); Phosphorus 2.2 mg/dL (2.5-4.5); Potassium 3.7 mmol/L (3.5-5.1); Sodium 138 mmol/L (136-145); Total Bilirubin 0.4 mg/dL (0.15-1.2); Total Protein 5.5 g/dL (6.6-8.7)
[2020-03-18] MEDS: levETIRAcetam 500 mg Tablet 1000 MG PO (06:17)
[2020-03-18] MEDS: dilTIAZem ER (24HR) 240 mg Capsule PO (06:17)
[2020-03-18] MEDS: atorvastatin 40 mg Tablet PO (09:51)
[2020-03-18] MEDS: metoprolol tartrate 50 mg Tablet 100 MG PO ×2 (09:51→18:33)
[2020-03-18] MEDS: lisinopril 20 mg Tablet PO (09:51)
[2020-03-18] MEDS: isosorbide mononitrate ER 30 mg Tablet PO (09:51)
[2020-03-18] MEDS: potassium chloride ER 10 mEq Tablet PO (09:52)
[2020-03-18] MEDS: levothyroxine 125 mcg Tablet PO (09:52)
[2020-03-18] MEDS: bumetanide 1 mg Tablet 0.5 MG PO (09:52)
[2020-03-18] MEDS: aspirin 81 mg EC Tablet PO (09:52)
[2020-03-18] MEDS: pantoprazole DR 40 mg Tablet PO (09:52)
[2020-03-18] MEDS: ferrous sulfate EC 325 mg Tablet PO (09:52)
--- NOTE | 2020-03-18 12:45 | PM.PN ---
Subjective Subjective: Interval history: This morning patient was seen, he is laying in bed, continues to have progressive weakness on the right side, no slurring of his speech, states that he is doing fine, his mentation seems to fluctuate, but answers some questions, still quite forgetful, alert oriented x 2, his one-on-one sitter was discontinued, but will place a bladder alarm Vitals/I&O/Wt Last Vital Signs Temp 97.9 F 03/18/20 11:59 Pulse 61 03/18/20 11:59 Resp 18 03/18/20 11:59 BP 106/63 03/18/20 11:59 Pulse Ox 95 03/18/20 11:59 03/17/20 03/18/20 03/18/20 22:59 06:59 14:59 Intake Total 410 / 1110 50 / 1160 Output Total 350 / 350 250 / 600 Balance 60 / 760 -200 / 560 Weight last 48 hrs Weight 76.929 kg Physical Exam Const: COMMON NORMALS: no acute distress EXAM LIMITATIONS: altered mental status ORIENTATION/CONSCIOUSNESS: Yes awake and Yes confused; not oriented to person, not oriented to place and not oriented to time HENMT: COMMON NORMALS: normocephalic HEAD & SCALP: normocephalic Neck/C-Spine: COMMON NORMALS: no JVD Resp: COMMON NORMALS: normal respiratory effort, No retractions, No use of accessory muscles and clear to auscultation bilaterally AUSCULTATION: clear to auscultation bilaterally Cardio: COMMON NORMALS: no JVD, regular rate, regular rhythm, S1 normal heart sound present and S2 normal heart sound present RATE: regular rate RHYTHM: regular rhythm HEART SOUNDS: S1 normal heart sound present and S2 normal heart sound present GI: COMMON NORMALS: Normal to inspection, nondistended, normoactive bowel sounds present, Soft to palpation, non-tender, No hepatosplenomegaly present, no masses and no bruits PALPATION: Yes Soft to palpation and Yes No hepatosplenomegaly present Extremity: COMMON NORMALS: capillary refill normal, no clubbing, cyanosis or edema, no calf tenderness and no pedal edema Neuro: SENSORIUM/ORIENTATION: No oriented to person, No oriented to place and No oriented to time Urinary Catheter Management^: 3-way Urethral CBI: Cath Placed During This Visit: yes Urinary Catheter Date of Insertion: 03/15/20 Urinary Catheter Time of Insertion: 02:00 Alvarez Latex Free: Cath Placed During This Visit: yes Reason for Continuing Indwelling Catheter: Chronic Indwelling Urinary Catheter on Admission Urinary Catheter Date of Insertion: 03/15/20 Urinary Catheter Time of Insertion: 08:00 Data : 03/18/20 04:34 03/18/20 04:34 Micro: Microbiology 03/15/20 14:00 Urine Culture - Final Urine Catheterized Enterococcus faecalis 03/16/20 13:15 MRSA Culture - Final Nose A&P Assessment and plan (1) Hematuria: Likely secondary to urethral injury Patient must of fallen, and somehow pulled on Alvarez catheter Catheter was placed by Dr. Pugh, thank you for the help and consult We will start aspirin today No episodes of confusion, discontinue one-to-one sitter, bed alarm placed Status: Acute (2) Hypertension: continue home medications inluding CLIF inhibitors, imdur and metoprolol Status: Acute (3) CVA (cerebral vascular accident): In terms of the CVA, what I get from the [facility], is the patient a few days ago had a large CVA, he had right upper and lower extremity weakness, was discharged to the [facility], he only spent 1 day at the [facility], apparently the [facility] was telling me that the came early in the morning and wanted him discharged from the [facility], but she left subsequently, they have not heard back from her, throughout the day he was quite weak, fatigued, who is a high aspiration risk, so they did not feed him, and not sure exactly if he had a formal swallow evaluation, but unfortunately during the nights he got up out of bed, and fell -I spoke to patient today, she tells me that patient had a history of bladder cancer, status post chemotherapy, follows with a urologist in [place], has a history of CVA in 2013, with peripheral right vision loss, recent history of a stroke at [facility], he has right upper extremity weakness some right lower extremity weakness, unsteadiness on his feet, tells me that he was quite difficult to work with physical therapist, would refuse physical therapy at time, she tells me that she would feed him every day, no dysphagia that she knows of, no new visual loss as per her knowledge, maybe some slight slurring of his speech, but nothing profound. -I spoke to again today, she does not want him to be discharged to [facility], she wants to take him home, I advised that he has right upper lower extremity weakness is very unsteady on his feet, has a high risk of falls, high risk of fractures, high risk of intracranial bleed, high risk of significant morbidity and mortality. She tells me that he has already fallen in the [facility], they do not do a good job there, she might as well take him home, also she tells me that they cannot afford it. I advised that he is unsafe to go home in my opinion, he really needs [facility] care, that is my strong recommendation for him to go to a [facility], he needs a lot of assistance, I am also worried about her injuring herself trying to take care of him, she tells me that she still wants him to come home -Patient's now wants him to go to either [facility] bed or go home with hospice, this will be have to be arranged, will find out by Thursday -Continue aspirin -Start DVT prophylaxis today -Continue statin, Keppra -Currently on dysphagia diet -PT OT -Right upper extremity weakness and lower extremity weakness 3 out of 5 compared 5/5 on the left -Refuses to participate in physical therapy -Continue Zosyn for possible UTI, and likely aspiration pneumonia Status: Acute (4) Atrial fibrillation: -Currently on Cardizem continue digoxin and metoprolol -Not on anticoagulation due to multiple falls, high risk of significant injury -Will await records from [facility] -Continue telemetry monitoring Status: Acute Additional A&P Information Aspiration pneumonia: afebrile, is on 2 L, likely has aspiration event secondary to fall -Currently afebrile, on room air -Blood cultures so far negative - urine cultures, sputum cultures, urine bacterial antigens -MRSA nares negative, stop vancomycin -Continue Zosyn High bleed risk: Given patient's dementia, multiple falls, urethral injury, he is a high risk to anticoagulate with his atrial fibrillation CVA. 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
[2020-03-18] MEDS: enoxaparin 40 mg/0.4 mL Syringe SUBCUT (13:11)
[2020-03-18] MEDS: amoxicillin-clav 875-125 mg Tablet 1 TAB PO (18:33)
[2020-03-18] MEDS: levETIRAcetam 500 mg Tablet PO (21:06)
[2020-03-19] VITALS (7 sets, daily range): BP systolic 110–145; BP diastolic 62–83; PULSE 59–78; RESP 15–18; TEMP 36–37; O2SAT 94–96
[2020-03-19 04:27] LABS: Basophils % 0.4 %; Eosinophils # 0.5 10^3/uL (0.0-0.8); Eosinophils % 5.5 %; Hematocrit 41.2 % (42.0-52.0); Hemoglobin 12.9 g/dL (11.7-16.6); Lymphocytes # 2.5 10^3/uL (0.8-4.8); Lymphocytes % 30.5 %; Mean Corpuscular HGB Conc 31.3 g/dL (30.0-36.0); Mean Corpuscular Hemoglobin 27.9 pg (28.0-34.0); Mean Platelet Volume 10.7 fL (7.4-10.4); Monocytes # 1.1 10^3/uL (0.2-0.9); Monocytes % 12.8 %; Neutrophils # 4.13 10^3/uL (1.8-7.7); Neutrophils % 50.2 %; Nucleated Red Blood Cells % 0 %; Platelet Count 223 10^3/cmm (130-400); Red Blood Count 4.63 10^6/uL (4.1-5.3); Red Cell Distribution Width 15.3 % (12.1-15.1); White Blood Count 8.2 10^3/uL (4.0-10.0)
[2020-03-19 04:53] LABS: Alanine Aminotransferase 14 U/L (0-41); Albumin Level 2.7 g/dL (3.5-5.2); Alkaline Phosphatase 80 IU/L (40-130); Aspartate Amino Transferase 14 U/L (0-40); Blood Urea Nitrogen 17 mg/dL (8-23); Calcium 8.7 mg/dL (8.5-10.5); Carbon Dioxide 26 mmol/L (22-29); Chloride 105 mmol/L (98-107); Glucose 79 mg/dL (65-115); Magnesium 2.3 mg/dL (1.7-2.3); Osmolality Calculated 288 mOsm/kg (285-295); Phosphorus 2.4 mg/dL (2.5-4.5); Sodium 139 mmol/L (136-145); Total Bilirubin 0.5 mg/dL (0.15-1.2); Total Protein 5.7 g/dL (6.6-8.7)
[2020-03-19 04:59] LABS: Anion Gap 11.8 (5-19); Potassium 3.8 mmol/L (3.5-5.1)
[2020-03-19] MEDS: levETIRAcetam 500 mg Tablet 1000 MG PO (06:18)
[2020-03-19] MEDS: dilTIAZem ER (24HR) 240 mg Capsule PO (06:18)
[2020-03-19] MEDS: bumetanide 1 mg Tablet 0.5 MG PO (09:06)
[2020-03-19] MEDS: amoxicillin-clav 875-125 mg Tablet 1 TAB PO (09:06)
[2020-03-19] MEDS: levothyroxine 125 mcg Tablet PO (09:06)
[2020-03-19] MEDS: digoxin 125 mcg Tablet PO (09:07)
[2020-03-19] MEDS: isosorbide mononitrate ER 30 mg Tablet PO (09:07)
[2020-03-19] MEDS: atorvastatin 40 mg Tablet PO (09:07)
[2020-03-19] MEDS: lisinopril 20 mg Tablet PO (09:07)
[2020-03-19] MEDS: metoprolol tartrate 50 mg Tablet 100 MG PO (09:07)
[2020-03-19] MEDS: aspirin 81 mg EC Tablet PO (09:07)
[2020-03-19] MEDS: potassium chloride ER 10 mEq Tablet PO (09:09)
[2020-03-19] MEDS: pantoprazole DR 40 mg Tablet PO (09:09)
--- NOTE | 2020-03-19 09:35 | PC.SOCIAL ---
IMM Updated Page 2 of IMM updated with spouse by phone. Initialed, dated, and timed and placed back in chart. Copy provided to patient's bedside.
--- NOTE | 2020-03-19 11:23 | PM.DCS ---
Discharge Providers Date of Admission: 03/14/20 21:42 Date of Discharge: March 19, 2020 Attending Provider at Admission: Alfonso Ozuna MD Attending Provider at Discharge: Ranulfo Bradford MD Diagnoses at Discharge Discharge Diagnosis (1) Hematuria: Status: Acute (2) Hypertension: Status: Acute (3) CVA (cerebral vascular accident): Status: Acute (4) Atrial fibrillation: Status: Acute Reason for Visit Reason for Visit: urology cath trauma d/a Hospital Course Hospital Course This is a 79-year-old male, with a past medical history of hypertension, hyperlipidemia, atrial fibrillation, history of bladder cancer, history of previous CVAs, recent history of CVA discharged from [facility] to [facility] who presents to [facility] after falling, and pulling out Alvarez catheter. Patient was admitted to [facility] for hematuria, secondary to urethral injury, had Alvarez catheter placed by Dr. Pugh, anticoagulation was initially held, restarted after 48 hours, no repeat episodes of bleeding. Patient will follow up with Dr. Pugh in 3 weeks for cath change and cystoscopy. In terms of CVA: Embolic in nature -Has a previous history of CVA in 2013, with right peripheral visual loss -Current CVA what I get from the [facility] and , is that the patient a few days ago had a large CVA, he has right upper extremity weakness and right lower extremity weakness, unsteadiness on his feet, tells me that he was quite difficult to work with physical therapist, would refuse physical therapy at times, she tells me that she would feed him every day, no dysphagia that she knows of, no new visual loss as per her knowledge, maybe some slight slurring of his speech, but nothing profound. -As inpatient continue to have right upper and right lower extremity weakness, no slurring of speech, no facial droop, no choking episodes -Discharged on aspirin, statin -Patient will be discharged home with home hospice, as was adamant about taking him home, she had distrust with the [facility] given his fall, I was uncomfortable sending him home without reasonable help and the only reasonable option given his high risk of falls, high risk of bleeding, high risk and morbidity and mortality was home hospice -Patient's was advised the risk and benefits, she voiced understanding, all questions answered, agreed to proceed -Patient's was advised that he has a high risk of falls, high risk of bleeding, ambulate and transfer with care In terms of patient's atrial fibrillation: -Is on aspirin 325, digoxin, metoprolol, Cardizem -Was not discharged on anticoagulation for [facility] due to high risk of bleed, high risk of falls -He has had 2 CVAs, they seem embolic in nature -I again had an extensive discussion with patient's , given his repeated falls, he has a high risk of bleeding, high risk of falls, high risk of morbidity or mortality associate with anticoagulation. However he does have significant risk of embolic stroke in the near future. -Unfortunately this not a perfect decision, on the one hand he is a high risk of life-threatening bleeding associated with falls, high risk of GI bleed versus high risk of embolic strokes and he is already had 2 -Above all the wants him to remain comfortable, she does not want him to suffer, she does not want aggressive interventions, she has already elected for home hospice -After after discussion of risks and benefits of anticoagulation, she voiced understanding, all questions answered, decided against anticoagulation, okay with aspirin 325 mg daily -advised that he still has a risk of significant bleeding, trauma, morbidity and mortality with aspirin, he has done well so far, voiced understanding, all questions answered, agreed to proceed Patient had aspiration pneumonia during his hospitalization, requiring broad-spectrum antibiotic therapy, clinically improved, down to room air, afebrile, discharged on Augmentin. He will be discharged on aspiration precautions, dysphagia diet, monitoring feeds, monitoring for recurrent fevers, cough, shortness of breath. I had an extensive discussion with patient's , that he will likely have recurrent aspiration events, this will unfortunately will be a cyclical disease process, and likely develop recurrent aspiration pneumonia. This is a well-known phenomenon with patients with a history of dementia and CVAs, we can do the best we can with above noninvasive strategies to reduce the risk of aspiration. However they are not 100%. Options I discussed were PEG tube placement versus comfort, she is elected for hospice. She does not want aggressive interventions, above all she does not want him to suffer. Thus I advised her that he likely has a high risk of recurrent aspiration events, recurrent aspiration pneumonias, risk of recurrent sepsis, risk of recurrent admissions. If she does not want aggressive interventions, we can try outpatient therapy with antibiotics as a solution. But I advised that this might become a cyclical process, he is already on hospice, and she would like to avoid aggressive interventions. Physical Exam Const: COMMON NORMALS: no acute distress and alert EXAM LIMITATIONS: altered mental status GENERAL APPEARANCE: cooperative ORIENTATION/CONSCIOUSNESS: Yes awake, Yes oriented to person and Yes confused; not oriented to place and not oriented to time HENMT: COMMON NORMALS: normocephalic HEAD & SCALP: normocephalic Eye: COMMON NORMALS: Equal, round and reactive pupils present PUPIL: Yes Equal, round and reactive pupils present Neck/C-Spine: COMMON NORMALS: no JVD Lymph: LYMPHATIC: no lymphadenopathy noted Chest: COMMONS NORMALS: normal inspection of the chest Resp: COMMON NORMALS: normal respiratory effort, No retractions, No use of accessory muscles and clear to auscultation bilaterally AUSCULTATION: clear to auscultation bilaterally Cardio: COMMON NORMALS: no JVD, regular rate, regular rhythm, S1 normal heart sound present and S2 normal heart sound present RATE: regular rate RHYTHM: regular rhythm HEART SOUNDS: S1 normal heart sound present and S2 normal heart sound present GI: COMMON NORMALS: Normal to inspection, nondistended, normoactive bowel sounds present, Soft to palpation, non-tender, No hepatosplenomegaly present, no masses and no bruits INSPECTION: Yes normal to inspection PALPATION: Yes Soft to palpation and Yes No hepatosplenomegaly present Extremity: COMMON NORMALS: full ROM, capillary refill normal, no clubbing, cyanosis or edema, no calf tenderness and no pedal edema Neuro: SENSORIUM/ORIENTATION: Yes alert, Yes oriented to person, No oriented to place and No oriented to time OTHER: Right upper extremity weakness 3 out of 5 compared to 5 out of 5 on the left right lower extremity strength 3 out of 5 compared to 5 out of 5 on the left, no slurring of his speech, no choking episodes, no facial droop Urinary Catheter Management^: 3-way Urethral CBI: Cath Placed During This Visit: yes Urinary Catheter Date of Insertion: 03/15/20 Urinary Catheter Time of Insertion: 02:00 Alvarez Latex Free: Cath Placed During This Visit: yes Reason for Continuing Indwelling Catheter: Chronic Indwelling Urinary Catheter on Admission Urinary Catheter Date of Insertion: 03/15/20 Urinary Catheter Time of Insertion: 08:00 Discharge Data Data Completed and Pending: Completed Studies During Hospitalization Category Date Time Status CT head wo con* 7 0450 Routine Cat Scan 03/15/20 13:06 Completed XR chest 1V gabriella ble [id number] Routine Exams 03/15/20 13:06 Completed Pending at discharge Category Date Time Status Blood Culture Sta t Lab 03/15/20 14:17 Results Complete Blood Co unt w/Auto AM LABS Lab 03/20/20 04:00 Ordered Complete Blood Co unt w/Auto AM LABS Lab 03/21/20 04:00 Ordered Comprehensive Met abolic Panel AM LA BS Lab 03/20/20 04:00 Ordered Comprehensive Met abolic Panel AM LA BS Lab 03/21/20 04:00 Ordered Magnesium AM LABS Lab 03/20/20 04:00 Ordered Magnesium AM LABS Lab 03/21/20 04:00 Ordered Phosphorus AM LAB S Lab 03/20/20 04:00 Ordered Phosphorus AM LAB S Lab 03/21/20 04:00 Ordered Labs from last 24 hours 03/19/20 03/19/20 04:02 04:02 WBC 8.2 RBC 4.63 Hgb 12.9 Hct 41.2 L MCV 89.0 MCH 27.9 L MCHC 31.3 RDW 15.3 H Plt Count 223 MPV 10.7 H Neut % (Auto) 50.2 Lymph % (Auto) 30.5 Chambers % (Auto) 12.8 Eos % (Auto) 5.5 Baso % (Auto) 0.4 Neut # (Auto) 4.13 Lymph # (Auto) 2.5 Chambers # (Auto) 1.1 H Eos # (Auto) 0.5 Baso # (Auto) 0.0 Nucleated RBC % (a uto) 0 Nucleated RBCs # 0.0 Sodium 139 Potassium 3.8 Chloride 105 Carbon Dioxide 26 Anion Gap 11.8 BUN 17 Creatinine 0.9 GFR Calculation Not Reportable Glucose 79 Calculated Osmolal ity 288 Calcium 8.7 Phosphorus 2.4 L Magnesium 2.3 Total Bilirubin 0.5 AST 14 ALT 14 Alkaline Phosphata se 80 Total Protein 5.7 L Albumin 2.7 L Globulin 3.0 Vitals: Last Vital Signs Temp 97.5 F L 03/19/20 10:51 Pulse 59 L 03/19/20 10:51 Resp 15 03/19/20 10:51 BP 110/73 03/19/20 10:51 Pulse Ox 95 03/19/20 10:51 Discharge Plan Discharge Patient Disposition: Hospice - Home Condition: Stable Prescriptions: New amoxicillin-pot clavulanate 875-125 mg Tablet 1 tab PO BID 7 Days Qty: 14 RF: 0 Continued aspirin 325 mg Tablet,Delayed Release (Dr/Ec) 325 mg PO DAILY RF: 0 bumetanide 0.5 mg Tablet 0.5 mg PO DAILY RF: 0 diltiazem HCl [Cartia XT] 240 mg Capsule,Extended Release 24hr 240 mg PO QAM RF: 0 ferrous sulfate 325 mg (65 mg iron) Tablet 325 mg PO DIRECTED RF: 0 isosorbide mononitrate 30 mg Tablet Extended Release 24 Hr 30 mg PO DAILY RF: 0 Keppra 1,000 mg Tablet 1,000 mg PO QAM RF: 0 Keppra 500 mg Tablet 500 mg PO BEDTIME RF: 0 digoxin 125 mcg (0.125 mg) tablet 125 mcg PO EVERY OTHER DAY RF: 0 Lipitor 40 mg Tablet 40 mg PO DAILY RF: 0 metoprolol tartrate 100 mg Tablet 100 mg PO BID RF: 0 benazepril 20 mg Tablet 20 mg PO DAILY RF: 0 potassium chloride 10 mEq capsule, extended release 10 meq PO DAILY RF: 0 levothyroxine 125 mcg Tablet 125 mcg PO DAILY RF: 0 Discharge Orders: Discharge Order (Routine); Ordered 03/19/20 Ordered By: Ranulfo Bradford Other Ambulatory Orders: DME: Hospital Bed (Order) Location: None Selected Ordered By: Ranulfo Bradford Referrals: [facility] [Outside] David Pugh MD [Physician] - 04/11/20 10:15 am (3-week for cystoscopy and catheter change.) Kaye Corbin MD [Physician] - 04/18/20 1:00 pm Discharge Diet: As Directed Discharge Activity: Resume usual activity Patient Instructions: Atrial Fibrillation, Amoxicillin/Clavulanate Potassium (By mouth), Hypertension, Urinary Retention in Men (GEN), Ischemic Stroke (GEN) Activity Restrictions/Additional Instructions: -Alvarez catheter has been placed for urethral injury, maintain Alvarez catheter, monitor for bleeding, follow-up with Dr. Pugh in 2 to 3 weeks -For atrial fibrillation follow-up with Dr. Corbin in 1 month continue aspiration precautions, keep head of bed elevated, monitor feeds, monitor for choking episode -If you were to have fevers, shortness of breath, please monitor as this can be a sign for aspiration pneumonia Discharge Attestations Time Spent in Discharge Care*: less than 30 min Quality Metrics Clinical Quality Measures During this hospital stay, did patient experience: None Coding Level of Care Code Acute Card Grinder Helper for Chg Fwd Exam Comprehensive Diagnoses Hematuria R31.9 Hypertension I10 CVA (cerebral vascular accident) I63.9 Atrial fibrillation I48.91
== END 2020-03-19 15:51 | disposition hospice, home (50) | DRG 698 ==
LOC: ER 21:54 → MEDSURG 03-15 00:23
PROVIDERS: Student in an Organized Health Care Education/Training Program; Admitting Provider Student in an Organized Health Care Education/Training Program; Emergency Provider Emergency Medicine; Visit Provider Family Medicine
DX: T83.021A Displacement of indwelling urethral catheter, initial encounter (principal); J69.0 Pneumonitis due to inhalation of food and vomit; I69.951 Hemiplegia and hemiparesis following unspecified cerebrovascular disease affecting right dominant side; N39.0 Urinary tract infection, site not specified; Y73.1 Therapeutic (nonsurgical) and rehabilitative gastroenterology and urology devices associated with adverse incidents; R31.0 Gross hematuria; I69.998 Other sequelae following unspecified cerebrovascular disease; H53.8 Other visual disturbances; I48.91 Unspecified atrial fibrillation; I10 Essential (primary) hypertension; J44.9 Chronic obstructive pulmonary disease, unspecified; F03.90 Unspecified dementia, unspecified severity, without behavioral disturbance, psychotic disturbance, mood disturbance, and anxiety; K21.9 Gastro-esophageal reflux disease without esophagitis; W19.XXXA Unspecified fall, initial encounter; Z66 Do not resuscitate; R33.9 Retention of urine, unspecified; Z85.51 Personal history of malignant neoplasm of bladder; Z92.21 Personal history of antineoplastic chemotherapy; R29.6 Repeated falls
CPT/HCPCS: 12345; 36415; 51702; 70450; 71045; 80053; 82550; 83605; 83735; 83880; 84100; 84145; 85025; 85610; 86140; 86403; 86850; 86900; 87040; 87077; 87086; 87186; 87426; 87641; 92610; 96372; 96375; 97161; 97165; 97530; 99282; J0696; J1650; J2060; J2270; J2543; J3370; J7050